=== PATIENT | male | born 1970 | race Hispanic/Latino ===

== ENCOUNTER 2017-08-07 12:51 | Observation (INO) | payer MEDICARE, OTHER ==
[2017-08-07] MEDS ORDERED: Iodixanol 320 MG/ML 100 ML BOTTLE IV ONE (13:27)
--- NOTE | 2017-08-07 13:37 | CT ---
PROCEDURE: CT HEAD WITHOUT CONTRAST. HISTORY: code stroke COMPARISON: None available. TECHNIQUE: Axial computed tomography images were obtained through the head/brain without intravenous contrast. Radiation dose: Total exam DLP = 846.1 mGy-cm. This CT exam was performed using one or more of the following dose reduction techniques: Automated exposure control, adjustment of the mA and/or kV according to patient size, and/or use of iterative reconstruction technique. FINDINGS: HEMORRHAGE: No intracranial hemorrhage. BRAIN: No mass effect or edema. No atrophy or chronic microvascular ischemic changes. VENTRICLES: Unremarkable. No hydrocephalus. CALVARIUM: Unremarkable. PARANASAL SINUSES: Left maxillary sinus and bilateral ethmoid air cell mucosal thickening. MASTOID AIR CELLS: Unremarkable as visualized. No inflammatory changes. OTHER FINDINGS: None. IMPRESSION: No acute intracranial pathology. Sinus disease as described above. Findings conveyed to Dr. Han by Dr. Mcgregor 1:35 pm on 08/07/2017.
[2017-08-07 13:38] LABS: INR 1.1 (0.9-1.2); PARTIAL THROMBOPLASTIN TIME 29.9 Seconds (25.6-37.1); PROTHROMBIN TIME 12.4 Seconds (9.8-13.1)
[2017-08-07 13:39] LABS: BASO % 0.7 % (0.0-2.0); EOS % 0.7 % (0.0-4.0); HEMOGLOBIN 15.9 g/dL (12.0-18.0); LYMPH # 1.9 K/uL (1.0-4.3); LYMPH % 45.9 % (20.0-40.0); MEAN CELL VOLUME 82.2 fl (80.0-94.0); MEAN CORPUSCULAR HEMOGLOBIN 27.8 pg (27.0-31.0); MEAN CORPUSCULAR HGB CONC 33.8 g/dL (33.0-37.0); MEAN PLATELET VOLUME 6.9 fl (7.2-11.7); MONO % 24.3 % (0.0-10.0); NEUT # 1.2 K/uL (1.8-7.0); NEUT % 28.4 % (50.0-75.0); NRBC % 0.1 % (0.0-0.0); PLATELET COUNT 166 K/uL (130-400); RBC 5.72 Mil/uL (4.40-5.90); WHITE BLOOD COUNT 4.1 K/uL (4.8-10.8)
[2017-08-07 13:39] LABS: CALCIUM 8.6 mg/dL (8.4-10.2); GFR AFRICAN-AMERICAN > 60; GFR NON-AFRICAN AMERICAN > 60; HDL CHOLESTEROL 37 MG/DL (30-70)
--- NOTE | 2017-08-07 13:42 | ED PDOC ---
HPI:STROKE - Historian Historian: Patient (this is a 47 yo [place] male with no past medical problem who presents to the ER because of left sided numbness that was noted about 2 hours prior to arrival. Patient has difficult finding the right Cam[place]onian word to describe his symptoms. His indicates that numbness is the closest term. Patient denies motor weakness, slurred speech, vision change, nausea or vomiting. Of note, he reports having had a high fever for the past 2-3 days that just resolved yesterday. He denies neck pain or headache.), Spouse - Chief Complaint Chief Complaint: Numbness - Onset Onset: Hours (2) - Timing Timing: Resolved NIHSS Stroke Scale - Date/Time Evaluation Performed When Was NIHSS Performed: Baseline - How Severe is the Stroke Level of Consciousness: 0=Alert LOC to Questions: 0=Both comments correct LOC to commands: 0=Obeys both correctly Best Gaze: 0=Normal Visual: 0=No visual loss Facial: 0=Normal Motor Arm - Left: 0=No drift Motor Arm - Right: 0=No drift Motor Leg - Left: 0=No drift Motor Leg - Right: 0=No drift Limb Ataxia: 0=Absent Sensory: 0=Normal Best Language: 0=No aphasia Dysarthia: 0=Normal articulation Extinction & Inattention (Neglect): 0=Normal, no object Score: 0 rTPA Inclusion/Exclusion - Refusal of Treatment Patient Refused Treatment: No - Inclusion Criteria for Altepase Patient is 18 years or Older: Yes The Clinical Diagnosis of Ischemic Stroke That is Causing a Potentially Disabling Neurological Deficit: No Time of Onset is Well Established to be Less Than 270 Minute Before Treatment Would Begin: Yes Risk/Benefit Discussed With Patient/Family Member Present: Yes Past Medical History Reviewed: Historical Data, Nursing Documentation, Vital Signs Vital Signs: Last Vital Signs Temp 98.2 F 08/07/17 12:59 Pulse 81 08/07/17 12:59 Resp 20 08/07/17 12:59 BP 154/92 H 08/07/17 12:59 Pulse Ox 99 08/07/17 12:59 - Medical History PMH: No Chronic Diseases - Surgical History Surgical History: No Surg Hx - Family History Family History: States: No Known Family Hx - Living Arrangements Living Arrangements: With Family - Social History Current smoker - smoking cessation education provided: No - Allergies Allergies/Adverse Reactions: Allergies Allergy/AdvReac Type Severity Reaction Status Date / Time No Known Allergies Allergy Verified 08/07/17 12:58 Review of Systems ROS Statement: Except As Marked, All Systems Reviewed And Found Negative Constitutional: Negative for: Fever, Chills Cardiovascular: Negative for: Chest Pain Respiratory: Negative for: Cough, Shortness of Breath Neurological: Negative for: Weakness Physical Exam - Reviewed Nursing Documentation Reviewed: Yes Vital Signs Reviewed: Yes - Physical Exam Appears: Positive for: Well, Non-toxic, No Acute Distress Head Exam: Positive for: ATRAUMATIC, NORMAL INSPECTION, NORMOCEPHALIC Skin: Positive for: Normal Color, Warm, DRY Eye Exam: Positive for: EOMI, Normal appearance, PERRL ENT: Positive for: Normal ENT Inspection Neck: Positive for: Normal, Painless ROM Cardiovascular/Chest: Positive for: Regular Rate, Rhythm Respiratory: Positive for: CNT, Normal Breath Sounds Gastrointestinal/Abdominal: Positive for: Normal Exam, Soft Back: Positive for: Normal Inspection Extremity: Positive for: Normal ROM Neurologic/Psych: Positive for: Alert, Oriented - Laboratory Results Result Diagrams: 08/07/17 13:30 08/07/17 13:20 - ECG O2 Sat by Pulse Oximetry: 99 - Radiology X-Ray: Read By Radiologist - Critical Care Total Time (In Min): 45 Medical Decision Making Medical Decision Making: Time: 1320 Plan: -- Type & Screen -- CTA Head/Neck Code Stroke (CT) -- Head w/o (Code Stroke) (CT) -- EKG -- CMP -- Hemoglobin A1C -- Lipid Panel -- Troponin -- Stroke Team consult -- CBC with differentials -- PTT -- Prothombin Time -- Chest Portable X-Ray -- Glucose, POC route -- Solar Panel Installer -- Call Stroke Team -- ED Obtain Labs -- Glucose, Blood, POC -- Nursing Swallow Screen -- Vital Signs Q15MIN Scribe Attestation: Documented by Izabella Lainez, acting as a scribe forDr. Renetta MD. Provider Scribe Attestation: All medical record entries made by the Scribe were at my direction and personally dictated by me. I have reviewed the chart and agree that the record accurately reflects my personal performance of the history, physical exam, medical decision making, and the department course for this patient. I have also personally directed, reviewed, and agree with the discharge instructions and disposition. case d/w Dr. Barnhart - admit to telemetry - case d/w Dr. Heller Disposition - Clinical Impression Clinical Impression: Left sided numbness - Patient ED Disposition Is Patient to be Admitted: Yes - Disposition Disposition: Transfer of Care Disposition Time: 14:00 Condition: GUARDED Forms: [facility] (Cam[place]onian) - Pt Status Changed To: Hospital Disposition Of: Observation
[2017-08-07 13:49] LABS: LDL CHOLESTEROL 43 mg/dL (0-129)
--- NOTE | 2017-08-07 13:52 | RAD ---
HISTORY: Code Stroke COMPARISON: No prior. FINDINGS: LUNGS: No active pulmonary disease. PLEURA: No significant pleural effusion identified, no pneumothorax apparent. CARDIOVASCULAR: Normal. OSSEOUS STRUCTURES: No significant abnormalities. VISUALIZED UPPER ABDOMEN: Normal. OTHER FINDINGS: None. IMPRESSION: No active disease.
[2017-08-07 13:56] LABS: ALB/GLOB RATIO 1.1 (1.0-2.1); ALBUMIN 4.4 g/dL (3.5-5.0); ALT/SGPT 33 U/L (21-72); AST/SGOT 43 U/L (17-59); BLOOD UREA NITROGEN 15 mg/dl (9-20)
[2017-08-07] MEDS: Sodium Chloride 0.9% 1,000 ML IV SCH (14:06)
[2017-08-07 14:36] LABS: ALB/GLOB RATIO 1.2 (1.0-2.1); ALT/SGPT 38 U/L (21-72); AST/SGOT 30 U/L (17-59); BLOOD UREA NITROGEN 15 mg/dl (9-20); CALCIUM 8.4 mg/dL (8.4-10.2); GFR AFRICAN-AMERICAN > 60; GFR NON-AFRICAN AMERICAN > 60
[2017-08-07 14:43] LABS: BLASTS 1 % (0-0); LYMPHOCYTE 22 % (20-50); METAMYELOCYTE 2 % (0-0); MONOCYTE 27 % (0-10); NEUTROPHIL 36 % (42-75); REACTIVE LYMPHOCYTES 12 % (0-0); TOTAL CELLS COUNTED 100
[2017-08-07 14:45] LABS: PLATELET ESTIMATE NORMAL (NORMAL)
--- NOTE | 2017-08-07 16:44 | CP.PCM.HP ---
History of Present Illness - History of Present Illness History of Present Illness: 47 yo male with no significant PMH aside from Glaucoma of the left eye brought in because of numbness of left side of the body lasting for about 5-10 seconds. Numbness described as tingling sensation associated with pressure like headache and prominence of the superficial vessels on the temporal areas. Denied motor weakness, visual changes or slurring of speech. Present on Admission - Present on Admission Any Indicators Present on Admission: No History of DVT/PE: No History of Uncontrolled Diabetes: No Urinary Catheter: No Decubitus Ulcer Present: No Review of Systems - Review of Systems All systems: reviewed and no additional remarkable complaints except (aside from those mentioned above, 12 point system review were negative by me) Past Patient History - Tetanus Immunizations Tetanus Immunization: Unknown - Past Social History Smoking Status: Never Smoked Chewing Tobacco Use: No Cigar Use: No Alcohol: None Drugs: Denies Home Situation {Lives}: With Family - HEENT Hx Glaucoma: Yes (lt eye) - PSYCHIATRIC Hx Substance Use: No - ANESTHESIA Hx Anesthesia: No Meds Allergies/Adverse Reactions: Allergies Allergy/AdvReac Type Severity Reaction Status Date / Time No Known Allergies Allergy Verified 08/07/17 12:58 Physical Exam - Constitutional Appears: No Acute Distress - Head Exam Head Exam: ATRAUMATIC - Eye Exam Eye Exam: absent: Scleral icterus - ENT Exam ENT Exam: Mucous Membranes Moist - Neck Exam Neck exam: Negative for: Meningismus - Respiratory Exam Respiratory Exam: absent: Rales, Rhonchi, Wheezes, Respiratory Distress - Cardiovascular Exam Cardiovascular Exam: REGULAR RHYTHM, +S1, +S2 - GI/Abdominal Exam GI & Abdominal Exam: Soft. absent: Tenderness - Rectal Exam Rectal Exam: Deferred - Extremities Exam Extremities exam: Negative for: calf tenderness, pedal edema - Back Exam Back exam: NORMAL INSPECTION - Neurological Exam Neurological exam: Alert, Oriented x3 - Psychiatric Exam Psychiatric exam: Normal Affect - Skin Skin Exam: Dry, Intact Results - Vital Signs Recent Vital Signs: Last Vital Signs Temp 98.2 F 08/07/17 12:59 Pulse 73 08/07/17 15:26 Resp 16 08/07/17 15:26 BP 135/90 08/07/17 15:26 Pulse Ox 99 08/07/17 14:20 - Labs Result Diagrams: 08/07/17 13:30 05/05/18 14:03 Labs: Laboratory Results - last 24 hr 08/07/17 08/07/17 08/07/17 13:06 13:20 13:20 WBC RBC Hgb Hct MCV MCH MCHC RDW Plt Count MPV Neut % (Auto) Lymph % (Auto) Angelina % (Auto) Eos % (Auto) Baso % (Auto) Neut # (Auto) Lymph # (Auto) Angelina # (Auto) Eos # (Auto) Baso # (Auto) Neutrophils % (Manual) Lymphocytes % (Manual) Reactive Lymphs % Monocytes % (Manual) Metamyelocytes % Blast Cells % Platelet Estimate RBC Morphology PT 12.4 INR 1.1 APTT 29.9 Sodium 138 Potassium 5.0 Chloride 97 L Carbon Dioxide 28 Anion Gap 18 BUN 15 Creatinine 0.8 Est GFR ( Amer) > 60 Est GFR (Non-Af Amer) > 60 POC Glucose (mg/dL) 121 H Random Glucose 107 Calcium 8.6 Total Bilirubin 1.1 AST 43 ALT 33 Alkaline Phosphatase 47 Troponin I < 0.0120 Total Protein 8.4 H Albumin 4.4 Globulin 4.0 H Albumin/Globulin Ratio 1.1 Triglycerides 120 Cholesterol 112 LDL Cholesterol Direct 43 HDL Cholesterol 37 Blood Type Antibody Screen BBK History Checked 08/07/17 08/07/17 08/07/17 13:20 13:30 13:48 WBC 4.1 L RBC 5.72 Hgb 15.9 Hct 47.0 MCV 82.2 MCH 27.8 MCHC 33.8 RDW 14.0 Plt Count 166 MPV 6.9 L Neut % (Auto) 28.4 L Lymph % (Auto) 45.9 H Angelina % (Auto) 24.3 H Eos % (Auto) 0.7 Baso % (Auto) 0.7 Neut # (Auto) 1.2 L Lymph # (Auto) 1.9 Angelina # (Auto) 1.0 H Eos # (Auto) 0.0 Baso # (Auto) 0.0 Neutrophils % (Manual) 36 L Lymphocytes % (Manual) 22 Reactive Lymphs % 12 H Monocytes % (Manual) 27 H Metamyelocytes % 2 H Blast Cells % 1 H Platelet Estimate Normal RBC Morphology PT INR APTT Sodium Potassium Chloride Carbon Dioxide Anion Gap BUN Creatinine Est GFR ( Amer) Est GFR (Non-Af Amer) POC Glucose (mg/dL) Random Glucose Calcium Total Bilirubin AST ALT Alkaline Phosphatase Troponin I Total Protein Albumin Globulin Albumin/Globulin Ratio Triglycerides Cholesterol LDL Cholesterol Direct HDL Cholesterol Blood Type Cancelled AB POSITIVE Antibody Screen Cancelled Negative BBK History Checked Cancelled No verified bt 08/07/17 14:03 WBC RBC Hgb Hct MCV MCH MCHC RDW Plt Count MPV Neut % (Auto) Lymph % (Auto) Angelina % (Auto) Eos % (Auto) Baso % (Auto) Neut # (Auto) Lymph # (Auto) Angelina # (Auto) Eos # (Auto) Baso # (Auto) Neutrophils % (Manual) Lymphocytes % (Manual) Reactive Lymphs % Monocytes % (Manual) Metamyelocytes % Blast Cells % Platelet Estimate RBC Morphology PT INR APTT Sodium 137 Potassium 3.8 Chloride 96 L Carbon Dioxide 28 Anion Gap 17 BUN 15 Creatinine 0.8 Est GFR ( Amer) > 60 Est GFR (Non-Af Amer) > 60 POC Glucose (mg/dL) Random Glucose 113 H Calcium 8.4 Total Bilirubin 0.5 AST 30 ALT 38 Alkaline Phosphatase 52 Troponin I Total Protein 7.4 Albumin 4.0 Globulin 3.4 Albumin/Globulin Ratio 1.2 Triglycerides Cholesterol LDL Cholesterol Direct HDL Cholesterol Blood Type Antibody Screen BBK History Checked Assessment & Plan - Assessment and Plan (Free Text) Assessment: 47 yo male with no significant PMH aside from Glaucoma of the left eye brought in because of numbness of left side of the body lasting for about 5-10 seconds. Numbness described as tingling sensation associated with pressure like headache and prominence of the superficial vessels on the temporal areas. Denied motor weakness, visual changes or slurring of speech. 1. Paresthesia of left side CT scan of head: no abnormality place on observation neuro consult with Dr Mandujano (ER called) ASA 81mg PO daily
--- NOTE | 2017-08-07 17:42 | CT ---
PROCEDURE: CT Angiography of the neck and brain dated 08/07/2017 HISTORY: Left-sided numbness. COMPARISON: Comparison made with CT scan brain 08/07/2017 TECHNIQUE: Contiguous helical/transaxial images of the neck were obtained from the level of the skull-base to the superior mediastinum in the arteriographic phase of enhancement. Coronal and sagittal reformats or also generated. IV contrast dose: 99 cc Visipaque 320 Radiation Dose - DLP: 636.63 mGy-cm This CT exam was performed using one or more of the following dose reduction techniques: Automated exposure control, adjustment of the mA and/or kV according to patient size, and/or use of iterative reconstruction technique. . FINDINGS: The visualized aortic arch widely patent with no significant atherosclerotic disease. Of the origins of the great vessels are also widely patent. The right brachiocephalic and left common carotid artery arise from a common trunk. The right and left common carotid arteries, carotid bifurcations and internal carotid arteries, including the petrous, cavernous and supraclinoid segments are widely patent. No significant atherosclerotic disease. No evidence of significant stenosis nor dissection. The vertebral arteries are patent throughout left-sided which is slightly larger in caliber/more dominant than the right side. . Basilar artery is patent. There is a origin of the right posterior cerebral artery. The visualized major branches of the [place] are also unremarkable without occlusion or significant stenosis. The distal of branches of the anterior middle and posterior cerebral artery is relatively symmetric. No evidence of large aneurysm nor vascular malformation. Note made of multiple of bilateral cervical lymph nodes within the jugulodigastric, submandibular -the submental and posterior cervical spaces bilaterally none of which appear pathologically enlarged. The largest right-sided jugulodigastric lymph node measures approximately 11.7 mm and the largest left-sided jugulodigastric lymph node measures approximately 12.4 mm. Lung apices clear. Mild multilevel degenerative spondylosis of the cervical spine most notably affecting the C5-C6 and to a lesser degree C6-C7 levels. IMPRESSION: Unremarkable CTA of the neck and brain. No evidence of occlusion, significant stenosis nor dissection. No evidence of large cerebral aneurysm nor vascular malformation.
--- NOTE | 2017-08-07 17:42 | CARD ---
APPROVED REPORT EKG Measurement Heart [id number] [id number] <Conclusion> Normal sinus rhythm Left axis deviation Abnormal ECG
--- NOTE | 2017-08-07 18:29 | CP.PCM.CON ---
History of Present Illness - History of Present Illness History of Present Illness: 47 yo male who has pmh of glaucoma of left eye, presented to [facility] with numbness of left side of the body lasting for about 5-10 seconds. noNumbness described as tingling sensation associated with pressure like headache and prominence of the superficial vessels on the temporal areas. Denied motor weakness, visual changes or slurring of speech. No headache, no facial asymmetry. PMH/PSH: left eye glaucoma FH/SH: drinks only occasionally. [employer] of [employer] in [facility]. no tobacco All: nkda. on exam: Normal neurological examination. No sensory loss. Past Patient History - Tetanus Immunizations Tetanus Immunization: Unknown - Past Social History Smoking Status: Never Smoked Chewing Tobacco Use: No Cigar Use: No Alcohol: None Drugs: Denies Home Situation {Lives}: With Family - HEENT Hx Glaucoma: Yes (lt eye) - PSYCHIATRIC Hx Substance Use: No - ANESTHESIA Hx Anesthesia: No Meds Allergies/Adverse Reactions: Allergies Allergy/AdvReac Type Severity Reaction Status Date / Time No Known Allergies Allergy Verified 08/07/17 12:58 - Medications Medications: Current Medications Sodium Chloride (Sodium Chloride 0.9%) 1,000 mls @ 100 mls/hr IV .Q10H JUSTIN Last Admin: 08/07/17 14:06 Dose: 100 mls/hr Results - Vital Signs Recent Vital Signs: Last Vital Signs Temp 98.2 F 08/07/17 12:59 Pulse 91 H 08/07/17 17:29 Resp 16 08/07/17 17:29 BP 134/87 08/07/17 17:29 Pulse Ox 96 08/07/17 17:29 - Labs Result Diagrams: 08/07/17 13:30 08/07/17 14:03 Labs: Laboratory Results - last 24 hr 08/07/17 08/07/17 08/07/17 13:06 13:20 13:20 WBC RBC Hgb Hct MCV MCH MCHC RDW Plt Count MPV Neut % (Auto) Lymph % (Auto) [place] % (Auto) Eos % (Auto) Baso % (Auto) Neut # (Auto) Lymph # (Auto) [place] # (Auto) Eos # (Auto) Baso # (Auto) Neutrophils % (Manual) Lymphocytes % (Manual) Reactive Lymphs % Monocytes % (Manual) Metamyelocytes % Blast Cells % Platelet Estimate RBC Morphology PT 12.4 INR 1.1 APTT 29.9 Sodium 138 Potassium 5.0 Chloride 97 L Carbon Dioxide 28 Anion Gap 18 BUN 15 Creatinine 0.8 Est GFR ( Amer) > 60 Est GFR (Non-Af Amer) > 60 POC Glucose (mg/dL) 121 H Random Glucose 107 Calcium 8.6 Total Bilirubin 1.1 AST 43 ALT 33 Alkaline Phosphatase 47 Troponin I < 0.0120 Total Protein 8.4 H Albumin 4.4 Globulin 4.0 H Albumin/Globulin Ratio 1.1 Triglycerides 120 Cholesterol 112 LDL Cholesterol Direct 43 HDL Cholesterol 37 Blood Type Antibody Screen BBK History Checked 08/07/17 08/07/17 08/07/17 13:20 13:30 13:48 WBC 4.1 L RBC 5.72 Hgb 15.9 Hct 47.0 MCV 82.2 MCH 27.8 MCHC 33.8 RDW 14.0 Plt Count 166 MPV 6.9 L Neut % (Auto) 28.4 L Lymph % (Auto) 45.9 H [place] % (Auto) 24.3 H Eos % (Auto) 0.7 Baso % (Auto) 0.7 Neut # (Auto) 1.2 L Lymph # (Auto) 1.9 [place] # (Auto) 1.0 H Eos # (Auto) 0.0 Baso # (Auto) 0.0 Neutrophils % (Manual) 36 L Lymphocytes % (Manual) 22 Reactive Lymphs % 12 H Monocytes % (Manual) 27 H Metamyelocytes % 2 H Blast Cells % 1 H Platelet Estimate Normal RBC Morphology PT INR APTT Sodium Potassium Chloride Carbon Dioxide Anion Gap BUN Creatinine Est GFR ( Amer) Est GFR (Non-Af Amer) POC Glucose (mg/dL) Random Glucose Calcium Total Bilirubin AST ALT Alkaline Phosphatase Troponin I Total Protein Albumin Globulin Albumin/Globulin Ratio Triglycerides Cholesterol LDL Cholesterol Direct HDL Cholesterol Blood Type Cancelled AB POSITIVE Antibody Screen Cancelled Negative BBK History Checked Cancelled No verified bt 08/07/17 14:03 WBC RBC Hgb Hct MCV MCH MCHC RDW Plt Count MPV Neut % (Auto) Lymph % (Auto) [place] % (Auto) Eos % (Auto) Baso % (Auto) Neut # (Auto) Lymph # (Auto) [place] # (Auto) Eos # (Auto) Baso # (Auto) Neutrophils % (Manual) Lymphocytes % (Manual) Reactive Lymphs % Monocytes % (Manual) Metamyelocytes % Blast Cells % Platelet Estimate RBC Morphology PT INR APTT Sodium 137 Potassium 3.8 Chloride 96 L Carbon Dioxide 28 Anion Gap 17 BUN 15 Creatinine 0.8 Est GFR ( Amer) > 60 Est GFR (Non-Af Amer) > 60 POC Glucose (mg/dL) Random Glucose 113 H Calcium 8.4 Total Bilirubin 0.5 AST 30 ALT 38 Alkaline Phosphatase 52 Troponin I Total Protein 7.4 Albumin 4.0 Globulin 3.4 Albumin/Globulin Ratio 1.2 Triglycerides Cholesterol LDL Cholesterol Direct HDL Cholesterol Blood Type Antibody Screen BBK History Checked - Imaging and Cardiology CT scan - head Status: Image reviewed by me, Report reviewed by me (cta: shows bilateral enlarged lymph nodes. ) Assessment & Plan - Assessment and Plan (Free Text) Assessment: 47 yr old male who may have had lacunar stroke, but also has some unusual lymphadenopathy, and will need MRI Brain with yashira. PLan; 1. MRI BRain with yashira 2. echo 3. aspirin 325 mg po daily thank you DR. Barnhart
--- NOTE | 2017-08-07 20:46 | US ---
EXAM: US Duplex Left Lower Extremity Veins CLINICAL HISTORY: 47 years old, male; Pain; Leg, lower; Left; Additional info: R/O dvt TECHNIQUE: Real-time duplex ultrasound scan of the left lower extremity veins integrating B-mode two-dimensional vascular structure, Doppler spectral analysis, color flow Doppler imaging and compression. COMPARISON: No relevant prior studies available. FINDINGS: Deep veins: No DVT in the visualized common femoral, femoral, proximal deep femoral, popliteal or posterior tibial veins. The veins demonstrate normal color flow, are normally compressible, with normal phasic flow and/or augmentation response. IMPRESSION: No evidence of deep venous thrombosis in the visualized veins of the left lower extremity.
[2017-08-08 00:06] VITALS: RESP 18
[2017-08-08] MEDS: Sodium Chloride 0.9% 1,000 ML IV SCH (01:43)
[2017-08-08 06:34] LABS: BASO % 0.3 % (0.0-2.0); EOS % 0.6 % (0.0-4.0); HEMOGLOBIN 14.1 g/dL (12.0-18.0); LYMPH # 1.5 K/uL (1.0-4.3); LYMPH % 43.1 % (20.0-40.0); MEAN CELL VOLUME 81.9 fl (80.0-94.0); MEAN CORPUSCULAR HGB CONC 34.2 g/dL (33.0-37.0); MEAN PLATELET VOLUME 6.6 fl (7.2-11.7); MONO # 0.5 K/uL (0.0-0.8); MONO % 13.7 % (0.0-10.0); NEUT # 1.5 K/uL (1.8-7.0); NEUT % 42.3 % (50.0-75.0); NRBC % 0.2 % (0.0-0.0); RBC 5.02 Mil/uL (4.40-5.90); RED CELL DISTRIBUTION WIDTH 13.8 % (11.5-14.5); WHITE BLOOD COUNT 3.5 K/uL (4.8-10.8)
[2017-08-08 06:44] LABS: BLOOD UREA NITROGEN 13 mg/dl (9-20); GFR AFRICAN-AMERICAN > 60; GFR NON-AFRICAN AMERICAN > 60
[2017-08-08 08:03] VITALS: BP 112/73; PULSE 64; TEMP 97.8; O2SAT 98
--- NOTE | 2017-08-08 09:37 | CP.PCM.DIS ---
Provider - Provider Date of Admission: 08/07/17 14:31 Attending physician: Ang Heller MD Primary care physician: Poppy Menendez Consults: Neuro consult Time Spent in preparation of Discharge (in minutes): 10 Hospital Course - Lab Results Lab Results: Most Recent Lab Values WBC 3.5 K/uL (4.8-10.8) L 08/08/17 05:00 RBC 5.02 Mil/uL (4.40-5.90) 08/08/17 05:00 Hgb 14.1 g/dL (12.0-18.0) 08/08/17 05:00 Hct 41.1 % (35.0-51.0) 08/08/17 05:00 MCV 81.9 fl (80.0-94.0) 08/08/17 05:00 MCH 28.0 pg (27.0-31.0) 08/08/17 05:00 MCHC 34.2 g/dL (33.0-37.0) 08/08/17 05:00 RDW 13.8 % (11.5-14.5) 08/08/17 05:00 Plt Count 147 K/uL (130-400) 08/08/17 05:00 MPV 6.6 fl (7.2-11.7) L 08/08/17 05:00 Neut % (Auto) 42.3 % (50.0-75.0) L 08/08/17 05:00 Lymph % (Auto) 43.1 % (20.0-40.0) H 08/08/17 05:00 Cross % (Auto) 13.7 % (0.0-10.0) H 08/08/17 05:00 Eos % (Auto) 0.6 % (0.0-4.0) 08/08/17 05:00 Baso % (Auto) 0.3 % (0.0-2.0) 08/08/17 05:00 Neut # (Auto) 1.5 K/uL (1.8-7.0) L 08/08/17 05:00 Lymph # (Auto) 1.5 K/uL (1.0-4.3) 08/08/17 05:00 Cross # (Auto) 0.5 K/uL (0.0-0.8) 08/08/17 05:00 Eos # (Auto) 0.0 K/uL (0.0-0.7) 08/08/17 05:00 Baso # (Auto) 0.0 K/uL (0.0-0.2) 08/08/17 05:00 Neutrophils % (Manual) 36 % (42-75) L 08/07/17 13:30 Lymphocytes % (Manual) 22 % (20-50) 08/07/17 13:30 Reactive Lymphs % 12 % (0-0) H 08/07/17 13:30 Monocytes % (Manual) 27 % (0-10) H 08/07/17 13:30 Metamyelocytes % 2 % (0-0) H 08/07/17 13:30 Blast Cells % 1 % (0-0) H 08/07/17 13:30 Platelet Estimate Normal (NORMAL) 08/07/17 13:30 RBC Morphology (NORMAL) 08/07/17 13:30 PT 12.4 Seconds (9.8-13.1) 08/07/17 13:20 INR 1.1 (0.9-1.2) 08/07/17 13:20 APTT 29.9 Seconds (25.6-37.1) 08/07/17 13:20 Sodium 141 mmol/l (132-148) 08/08/17 05:00 Potassium 4.5 MMOL/L (3.6-5.0) 08/08/17 05:00 Chloride 103 mmol/L (98-107) 08/08/17 05:00 Carbon Dioxide 29 mmol/L (22-30) 08/08/17 05:00 Anion Gap 14 (10-20) 08/08/17 05:00 BUN 13 mg/dl (9-20) 08/08/17 05:00 Creatinine 0.7 mg/dl (0.8-1.5) L 08/08/17 05:00 Est GFR ( Amer) > 60 08/08/17 05:00 Est GFR (Non-Af Amer) > 60 08/08/17 05:00 POC Glucose (mg/dL) 121 mg/dL (65-110) H 08/07/17 13:06 Random Glucose 88 mg/dL (75-110) 08/08/17 05:00 Calcium 8.0 mg/dL (8.4-10.2) L 08/08/17 05:00 Total Bilirubin 0.5 mg/dl (0.2-1.3) 08/07/17 14:03 AST 30 U/L (17-59) 08/07/17 14:03 ALT 38 U/L (21-72) 08/07/17 14:03 Alkaline Phosphatase 52 U/L (38-126) 08/07/17 14:03 Troponin I < 0.0120 ng/mL (0.00-0.120) 08/07/17 13:20 Total Protein 7.4 G/DL (6.3-8.2) 08/07/17 14:03 Albumin 4.0 g/dL (3.5-5.0) 08/07/17 14:03 Globulin 3.4 gm/dL (2.2-3.9) 08/07/17 14:03 Albumin/Globulin Ratio 1.2 (1.0-2.1) 08/07/17 14:03 Triglycerides 120 mg/DL (0-149) 08/07/17 13:20 Cholesterol 112 mg/dL (0-199) 08/07/17 13:20 LDL Cholesterol Direct 43 mg/dL (0-129) 08/07/17 13:20 HDL Cholesterol 37 MG/DL (30-70) 08/07/17 13:20 Blood Type AB POSITIVE 08/07/17 13:48 Antibody Screen Negative 08/07/17 13:48 BBK History Checked No verified bt 08/07/17 13:48 - Hospital Course Hospital Course: 47 yo male with PMH of glaucoma of left eye, presented to [facility] with tingling of left side of the body lasting for about 5-10 seconds. Tingling sensation associated with pressure like headache and prominence of the superficial vessels on the temporal areas. Denied motor weakness, visual changes or slurring of speech. No headache, no facial asymmetry. As per patient he has not been feeling well for the last few days with fever for 3 days max 43 celcius , with nasal congestion , minimal productive cough with yellow secretions, generalized weakness ,decreased PO intake. Ct head showed no acute pathology, right maxillary sinus and bilateral ethmoidal sinus wall thickening Blood work up showed predominant lymphocytes and monocytes Afebrile CXR showed no acute pathology He states that has been having this tingling sensation on and off for the past 2 years, both upper and lower extremity He was placed under observation in telemetry, started on ASa, neuro checks , neurology consulted and ordered CTA head and neck and MRI brain Physical exam significant for palpable , not tender soft mobile LN right and left submandibular area CTA head and neck showed no acute pathology :multiple of bilateral cervical lymph nodes within the jugulodigastric, submandibular -the submental and posterior cervical spaces bilaterally none of which appear pathologically enlarged. The largest right-sided jugulodigastric lymph node measures approximately 11.7 mm and the largest left-sided jugulodigastric lymph node measures approximately 12.4 mm. Lung apices clear. Mild multilevel degenerative spondylosis of the cervical spine most notably affecting the C5-C6 and to a lesser degree C6-C7 levels. Overnight he remained stable with no neuro deficits , no weakness or sensory deficits.Complains of some pressure sensation to left side of head , minimal productive cough Based on all the new information and imaging most likely diagnosis is 1. Peripheral radiculopathy ( spondylosis C5-C6 c6-c7) 2.Suspected Acute Viral Rhinosinusitis superimposed by bacterial infection ( sent infectious mononucleosis) 3.Acute RhinoSinusitis 3.CVA ruled out Recommendations: Will discharge patient home . Will start Augmentin 875 mg po BID for 10 days for acute Rhinosinuvitis Continue ASA 81 mg po daily MRI with gadalinium to be performed as outpatient . Follow up with neurologist Return to hospital if left side tingling or weakness worsen or notices any other changes Discharge Exam - Head Exam Head Exam: ATRAUMATIC, NORMAL INSPECTION, NORMOCEPHALIC - Eye Exam Eye Exam: EOMI, Normal appearance, PERRL Pupil Exam: NORMAL ACCOMODATION - ENT Exam ENT Exam: Mucous Membranes Moist, Normal Exam - Neck Exam Neck exam: Full Rom, Lymphadenopathy (submandibular bilateral ), Normal Inspection - Respiratory Exam Respiratory Exam: Clear to PA & Lateral, NORMAL BREATHING PATTERN. absent: Rales, Rhonchi, Wheezes - Cardiovascular Exam Cardiovascular Exam: REGULAR RHYTHM, RRR, +S1, +S2. absent: JVD - GI/Abdominal Exam GI & Abdominal Exam: Normal Bowel Sounds, Soft. absent: Distended, Guarding, Rebound, Tenderness - Rectal Exam Rectal Exam: Deferred - Extremities Exam Extremities exam: normal capillary refill, normal inspection, pedal pulses present - Back Exam Back exam: NORMAL INSPECTION - Neurological Exam Neurological exam: Alert, CN II-XII Intact, Oriented x3, Reflexes Normal - Psychiatric Exam Psychiatric exam: Normal Affect, Normal Mood - Skin Skin Exam: Dry, Intact, Warm Discharge Plan - Discharge Medications Prescriptions: Amoxicillin/Clavulanate [Augmentin 875 MG-125 MG] 1 tab PO BID #20 tab Aspirin [Aspirin Chewable] 81 mg PO DAILY #30 chew - Follow Up Plan Condition: STABLE Disposition: HOME/ ROUTINE Patient education suggested?: Yes Instructions: Paresthesias (DC), Radiculopathy, Sinusitis, Adult (DC) Referrals: Hermelinda Barnhart MD [Medical Doctor] -
--- NOTE | 2017-08-08 09:58 | CP.PCM.PN ---
Subjective - Date & Time of Evaluation Date of Evaluation: 08/08/17 Time of Evaluation: 09:56 - Subjective Subjective: Mr. Cynthia Vora was seen and examined at the bedside. He is alert, oriented in all spheres. He is complaining of feeling dull occipital headache, described as a congested headache. He has episode of non-productive cough. He denies any blurred vision, diplopia, lightheadedness, nausea, or vomiting. He is able to follow simple commands with no weakness noted. There was no untoward events overnight. Objective - Vital Signs/Intake and Output Vital Signs (last 24 hours): Temp Pulse Resp BP Pulse Ox 97.8 F 64 18 112/73 98 08/08/17 08:02 08/08/17 08:02 08/08/17 08:02 08/08/17 08:02 08/08/17 08:02 - Medications Medications: Current Medications Sodium Chloride (Sodium Chloride 0.9%) 1,000 mls @ 100 mls/hr IV .Q10H JUSTIN Last Admin: 08/08/17 01:43 Dose: 100 mls/hr - Labs Labs: 08/08/17 05:00 08/08/17 05:00 PT 12.4 Seconds (9.8-13.1) 08/07/17 13:20 INR 1.1 (0.9-1.2) 08/07/17 13:20 APTT 29.9 Seconds (25.6-37.1) 08/07/17 13:20 - Constitutional Appears: No Acute Distress - Head Exam Head Exam: NORMAL INSPECTION - Neurological Exam Neurological Exam: Alert, CN II-XII Intact, Oriented x3 Neuro motor strength exam: Left Upper Extremity: 5, Right Upper Extremity: 5, Left Lower Extremity: 5, Right Lower Extremity: 5 Additional comments: Alert, oriented x3, follows commands. Sensation is intact. Assessment and Plan - Assessment and Plan (Free Text) Assessment: Lacunar Stroke Case discussed with Dr. webber, continue all current medical, physical, occupational, and speech therapies. Pending MRI of the brain and echocardiogram.
== END 2017-08-08 12:06 | disposition home or self-care (01) ==
LOC: H.ER 12:51 → H.ERHOLD 14:31 → H.TEL 17:11
DX: M47.22 Other spondylosis with radiculopathy, cervical region (principal); J01.90 Acute sinusitis, unspecified; H40.9 Unspecified glaucoma
CPT/HCPCS: 36415; 70450; 70496; 70498; 71045; 80048; 80053; 80061; 82948; 83036; 84443; 84484; 85025; 85610; 85730; 86308; 86850; 86900; 87070; 87430; 93005; 93971; 99283; G0378; J7040; Q9967

== ENCOUNTER 2017-11-01 17:33 | Emergency (ER) | payer OTHER ==
--- NOTE | 2017-11-01 18:09 | ED PDOC ---
HPI:STROKE - Time Time: 18:07 - Historian Historian: Patient - Notes: Notes:: Pt reports L sided numbness/weakness X 2 months, intermittent. Was admitted to [facility] 2 months ago, CT head negative, was discharged. Followed-up with PMD and Neurologist who ordered EMG but pt could not tolerate study. Also c/o L sided chest pain and intermittent SOB. Pt takes 81 mg ASA daily. Against Medical Advice - AMA Patient Left Against Medical Advice: The patient declines admission to the hospital and wishes to leave the Emergency Department. This action is against my medical advice. This decision was made with informed refusal. The patient was told that admission to the hospital is necessary. Explanation of the reasons why were discussed. The risks of leaving were explained to the patient and include, but are not limited to, worsening of known or currently unknown conditions, permanent disability and from undiagnosed or untreated conditions. The patient has the capacity to make this informed decision and understands my explanation of the current medical problem and risks of leaving. The patient voluntarily accepts these risks and signed an AMA form documenting our conversation. The patient was given the opportunity to ask questions and reconsider. The patient was encouraged to return to the Emergency Department at any time for further care. NIHSS Stroke Scale - Date/Time Evaluation Performed Date Performed: 11/01/17 When Was NIHSS Performed: Baseline - How Severe is the Stroke Level of Consciousness: 0=Alert LOC to Questions: 0=Both comments correct LOC to commands: 0=Obeys both correctly Best Gaze: 0=Normal Visual: 0=No visual loss Facial: 0=Normal Motor Arm - Left: 0=No drift Motor Arm - Right: 0=No drift Motor Leg - Left: 0=No drift Motor Leg - Right: 0=No drift Limb Ataxia: 0=Absent Sensory: 0=Normal Best Language: 0=No aphasia Dysarthia: 0=Normal articulation Extinction & Inattention (Neglect): 0=Normal, no object Score: 0 rTPA Inclusion/Exclusion - Refusal of Treatment Patient Refused Treatment: No - Inclusion Criteria for Altepase Patient is 18 years or Older: Yes The Clinical Diagnosis of Ischemic Stroke That is Causing a Potentially Disabling Neurological Deficit: No Time of Onset is Well Established to be Less Than 270 Minute Before Treatment Would Begin: No Risk/Benefit Discussed With Patient/Family Member Present: No - Exclusion Criteria for Altepase Uncontrolled Hypertension at Time of Treatment (Systolic BP above 185 or Diastolic BP above 110 mmHg): No Active Internal Bleeding: No Known Bleeding Diathesis Including but Not Limited to: Platelets Below 100,000/ mm,PTT Above 40 sec After Heparin Use, Current Use of Oral Anitcoagulant With INR Greater Than 1.7 or PT Greater Than 15 secs: No Evidence of an Intracranial Hemorrhage: No Evidence of Major Acute Infarct With Signs Greater Than 1/3 MCA Territory: No Suspicion of Subarachnoid Hemorrhage on Pretreatment Evaluation Even if CT Head Negative For Hemorrhage: No Past Medical History Reviewed: Nursing Documentation, Vital Signs Vital Signs: Last Vital Signs Temp 97.8 F 11/01/17 17:43 Pulse 81 11/01/17 17:43 Resp 18 11/01/17 17:43 BP 136/90 11/01/17 17:43 Pulse Ox 136 H 11/01/17 17:43 - Medical History PMH: No Chronic Diseases Denies: Chronic Kidney Disease Other PMH: Glaucoma - Family History Family History: States: Unknown Family Hx - Living Arrangements Living Arrangements: With Family - Social History Current smoker - smoking cessation education provided: No Alcohol: None Drugs: Denies - Home Medications Home Medications: Ambulatory Orders Medication Instructions Recorded Bimatoprost [Lumigan] 1 drop BOTHEYES DAILY 08/07/17 Mv-Min/Vit C/Glut/Lysine/Hc124 1 each PO DAILY 08/07/17 [Airborne Tablet Chewable] Amoxicillin/Clavulanate [Augmentin 1 tab PO BID #20 tab 08/08/17 875 MG-125 MG] Aspirin [Aspirin Chewable] 81 mg PO DAILY #30 chew 08/08/17 - Allergies Allergies/Adverse Reactions: Allergies Allergy/AdvReac Type Severity Reaction Status Date / Time No Known Allergies Allergy Verified 08/07/17 12:58 Review of Systems Constitutional: Negative for: Fever, Chills Eyes: Negative for: Vision Change Cardiovascular: Positive for: Chest Pain. Negative for: Palpitations Respiratory: Positive for: Shortness of Breath. Negative for: Cough Gastrointestinal: Negative for: Nausea, Vomiting, Abdominal Pain, Diarrhea Genitourinary Male: Negative for: Dysuria, Hematuria Skin: Negative for: Rash, Lesions Neurological: Positive for: Weakness, Numbness. Negative for: Incoordination, Change in Speech, Confusion, Seizures, Altered Mental Status, Headache, Dizziness Physical Exam - Reviewed Nursing Documentation Reviewed: Yes Vital Signs Reviewed: Yes - Physical Exam Appears: Positive for: Well, No Acute Distress Head Exam: Positive for: ATRAUMATIC, NORMAL INSPECTION Skin: Positive for: Normal Color, Warm, Dry Eye Exam: Positive for: Normal appearance, EOMI, PERRL Cardiovascular/Chest: Positive for: Regular Rate, Rhythm Respiratory: Positive for: Normal Breath Sounds. Negative for: Rales, Rhonchi, Wheezing Gastrointestinal/Abdominal: Positive for: Normal Exam, Bowel Sounds, Soft Extremity: Positive for: Normal ROM Neurologic/Psych: Positive for: Alert, binder operator II-XII, Oriented. Negative for: Motor/Sensory Deficits, Aphasia, Facial Droop - Laboratory Results Result Diagrams: 11/01/17 18:10 11/01/17 17:10 - ECG O2 Sat by Pulse Oximetry: 136 Medical Decision Making Medical Decision Makin yo male with L sided numbness/weakness and chest pain. - labs - EKG - CXR - CT head Accession No. : [id number] Patient Name / ID : CARA MANCILLA / [id number] Exam Date : 11/01/2017 18:14:20 ( Approved ) Study Comment : Sex / Age : M / 47Y Creator : bekah greenberg Dictator : Vaughn Farris MD Adjunct Instructor Chemistry : Stencil Machine Operator : Vaughn Farris MD Approver2 : Report Date : 11/01/2017 18:27:49 My Comment : Date of service: 11/01/2017 HISTORY: Code Stroke COMPARISON: 08/07/2017. FINDINGS: LUNGS: No active pulmonary disease. PLEURA: No significant pleural effusion identified, no pneumothorax apparent. CARDIOVASCULAR: No radiographic findings to suggest acute or significant cardiovascular disease. OSSEOUS STRUCTURES: No significant abnormalities. VISUALIZED UPPER ABDOMEN: Normal. OTHER FINDINGS: None. IMPRESSION: No active disease. No significant interval change compared to the prior examination(s). Accession No. : [id number] Patient Name / ID : CARA MANCILLA / [id number] Exam Date : 11/01/2017 19:09:36 ( Approved ) Study Comment : Sex / Age : M / 47Y Creator : Merry Felton MD Dictator : Merry Felton MD Adjunct Instructor Chemistry : Stencil Machine Operator : Merry Felton MD Approver2 : Report Date : 11/02/2017 10:06:54 My Comment : Date of service: 11/01/2017 PROCEDURE: CT HEAD WITHOUT CONTRAST. HISTORY: L sided numbness/weakness X 2 months COMPARISON: None available. TECHNIQUE: Axial computed tomography images were obtained through the head/brain without intravenous contrast. Radiation dose: Total exam DLP = 780.69 mGy-cm. This CT exam was performed using one or more of the following dose reduction techniques: Automated exposure control, adjustment of the mA and/or kV according to patient size, and/or use of iterative reconstruction technique. FINDINGS: HEMORRHAGE: No intracranial hemorrhage. BRAIN: Avila-white matter differentiation is preserved. There is no mass, mass effect or abnormal extra-axial fluid collection. There is no territorial infarction. The midline sagittal structures are normal. VENTRICLES: The ventricles are normal in size, shape and configuration. CALVARIUM: There is no calvarial fracture or extracranial soft tissue swelling. PARANASAL SINUSES: Predominantly clear. MASTOID AIR CELLS: Predominantly clear. OTHER FINDINGS: None. IMPRESSION: No acute intracranial abnormality. If there is a persistent focal neurologic deficit and an ongoing clinical concern for acute infarction, an MRI of the brain without intravenous contrast would be a more sensitive modality for evaluation of hyperacute/acute ischemic infarction. . Disposition - Clinical Impression Clinical Impression: Chest pain, Left sided numbness - Patient ED Disposition Is Patient to be Admitted: No - Disposition Disposition: Against Medical Advice Disposition Time: 20:17 Condition: UNKNOWN Forms: [place] (Qatari) ROBERTO Risk Score for UA/NSTEMI - ROBERTO Risk Score Age > 64: NO 3 or more CAD Risk Factors: NO Known CAD (Stenosis greater than 50%): NO Aspirin use in past 7 days: YES Severe Angina: NO EKG ST changes greater than 0.5mm: NO Positive Cardiac Marker: NO ROBERTO Score: 1 % risk at 14 days of: all cause mortality, new or recurrent DE, or severe recurrent ischemia requiring urgen revascularization: 5%
[2017-11-01] MEDS ORDERED: Sodium Chloride 0.9% 1,000 ML IV SCH (18:15)
[2017-11-01 18:21] LABS: BASO % 0.7 % (0.0-2.0); EOS % 0.6 % (0.0-4.0); HEMOGLOBIN 15.3 g/dL (12.0-18.0); LYMPH # 2.1 K/uL (1.0-4.3); LYMPH % 29.9 % (20.0-40.0); MEAN CELL VOLUME 83.3 fl (80.0-94.0); MEAN CORPUSCULAR HEMOGLOBIN 28.1 pg (27.0-31.0); MEAN CORPUSCULAR HGB CONC 33.7 g/dL (33.0-37.0); MEAN PLATELET VOLUME 6.2 fl (7.2-11.7); MONO # 0.4 K/uL (0.0-0.8); MONO % 5.6 % (0.0-10.0); NEUT # 4.5 K/uL (1.8-7.0); NEUT % 63.2 % (50.0-75.0); NRBC % 0.1 % (0.0-0.0); RBC 5.45 Mil/uL (4.40-5.90); RED CELL DISTRIBUTION WIDTH 14.3 % (11.5-14.5); WHITE BLOOD COUNT 7.1 K/uL (4.8-10.8)
[2017-11-01 18:37] LABS: ALB/GLOB RATIO 1.4 (1.0-2.1); ALBUMIN 4.5 g/dL (3.5-5.0); ALT/SGPT 39 U/L (21-72); AST/SGOT 28 U/L (17-59); BLOOD UREA NITROGEN 11 mg/dl (9-20); CALCIUM 9.3 mg/dL (8.4-10.2); GFR AFRICAN-AMERICAN > 60; GFR NON-AFRICAN AMERICAN > 60; HDL CHOLESTEROL 66 MG/DL (30-70)
[2017-11-01 18:48] LABS: LDL CHOLESTEROL 67 mg/dL (0-129)
--- NOTE | 2017-11-01 18:49 | RAD ---
Date of service: 11/01/2017 HISTORY: Code Stroke COMPARISON: 08/07/2017. FINDINGS: LUNGS: No active pulmonary disease. PLEURA: No significant pleural effusion identified, no pneumothorax apparent. CARDIOVASCULAR: No radiographic findings to suggest acute or significant cardiovascular disease. OSSEOUS STRUCTURES: No significant abnormalities. VISUALIZED UPPER ABDOMEN: Normal. OTHER FINDINGS: None. IMPRESSION: No active disease. No significant interval change compared to the prior examination(s).
[2017-11-01 19:08] LABS: INR 1.1 (0.9-1.2); PARTIAL THROMBOPLASTIN TIME 31.1 Seconds (25.6-37.1); PROTHROMBIN TIME 11.8 Seconds (9.8-13.1)
[2017-11-01 20:38] VITALS: BP 130/83; PULSE 64; RESP 16; TEMP 98
--- NOTE | 2017-11-02 09:16 | CARD ---
APPROVED REPORT Date of service: 11/01/2017 EKG Measurement Heart [id number] <Conclusion> Normal sinus rhythm Normal ECG
--- NOTE | 2017-11-02 10:08 | CT ---
Date of service: 11/01/2017 PROCEDURE: CT HEAD WITHOUT CONTRAST. HISTORY: L sided numbness/weakness X 2 months COMPARISON: None available. TECHNIQUE: Axial computed tomography images were obtained through the head/brain without intravenous contrast. Radiation dose: Total exam DLP = 780.69 mGy-cm. This CT exam was performed using one or more of the following dose reduction techniques: Automated exposure control, adjustment of the mA and/or kV according to patient size, and/or use of iterative reconstruction technique. FINDINGS: HEMORRHAGE: No intracranial hemorrhage. BRAIN: Avila-white matter differentiation is preserved. There is no mass, mass effect or abnormal extra-axial fluid collection. There is no territorial infarction. The midline sagittal structures are normal. VENTRICLES: The ventricles are normal in size, shape and configuration. CALVARIUM: There is no calvarial fracture or extracranial soft tissue swelling. PARANASAL SINUSES: Predominantly clear. MASTOID AIR CELLS: Predominantly clear. OTHER FINDINGS: None. IMPRESSION: No acute intracranial abnormality. If there is a persistent focal neurologic deficit and an ongoing clinical concern for acute infarction, an MRI of the brain without intravenous contrast would be a more sensitive modality for evaluation of hyperacute/acute ischemic infarction. . A preliminary report was provided by [employer].
[2017-11-04 07:53] VITALS: O2SAT 136
== END 2017-11-01 20:38 | disposition left against medical advice (07) ==
LOC: H.ER 17:33
DX: R07.9 Chest pain, unspecified (principal); R20.0 Anesthesia of skin
CPT/HCPCS: 70450; 71045; 80053; 80061; 82948; 83036; 84484; 85025; 85610; 85730; 86850; 86900; 93005; 99284; J7030

== ENCOUNTER 2018-04-28 22:13 | Emergency (ER) | payer OTHER ==
[2018-04-28] MEDS ORDERED: Sodium Chloride 0.9% 1,000 ML IV STA (23:01)
--- NOTE | 2018-04-28 23:01 | ED PDOC ---
HPI:STROKE - Time Time: 22:35 - Historian Historian: Patient, Family - Chief Complaint Chief Complaint: Weakness, Numbness - Onset Onset: Years (1+) - Severity of pain Maximum severity:: Mild Severity Current: Mild - Exacerbated by Exacerbated by:: Nothing - Relieved by Relieved by:: Nothing - TPA Positive for Contraindication: Yes Reason tPA is not being Administered: symptoms ongoing intermittently for about one year per patient - Notes: Notes:: 47yo male c/o left sided numbness and weakness intermittent but persistent for about a year, today had dizziness and mild headache prompting ED visit. Dizziness worse w head movement. Denies change vision, change speech, syncope, or chest pain/SOB. Has seen both neurology and cardiology in [facility] with MRI brain, stress test and basic workup for metabolic or Lyme etiologies. Told he needed EMG but hasnt performed yet. NIHSS Stroke Scale - Date/Time Evaluation Performed Date Performed: 04/28/18 Time Performed: 22:40 When Was NIHSS Performed: Re-evaluation - How Severe is the Stroke Level of Consciousness: 0=Alert LOC to Questions: 0=Both comments correct LOC to commands: 0=Obeys both correctly Best Gaze: 0=Normal Visual: 0=No visual loss Facial: 0=Normal Motor Arm - Left: 0=No drift Motor Arm - Right: 0=No drift Motor Leg - Left: 0=No drift Motor Leg - Right: 0=No drift Limb Ataxia: 0=Absent Sensory: 0=Normal Best Language: 0=No aphasia Dysarthia: 0=Normal articulation Extinction & Inattention (Neglect): 0=Normal, no object Score: 0 rTPA Inclusion/Exclusion - Refusal of Treatment Patient Refused Treatment: No - Inclusion Criteria for Altepase Patient is 18 years or Older: Yes The Clinical Diagnosis of Ischemic Stroke That is Causing a Potentially Disabling Neurological Deficit: No Time of Onset is Well Established to be Less Than 270 Minute Before Treatment Would Begin: No Risk/Benefit Discussed With Patient/Family Member Present: No - Warning to TPA With Conditions Condition: Stroke Serevity Too Mild (ongoing 1 year) Past Medical History Vital Signs: Last Vital Signs Temp 97.2 F L 04/28/18 22:21 Pulse 82 04/28/18 22:21 Resp 18 04/28/18 22:21 BP 145/88 04/28/18 22:21 Pulse Ox 99 04/28/18 22:21 - Medical History PMH: Denies: Chronic Kidney Disease - Family History Family History: States: Unknown Family Hx - Home Medications Home Medications: Ambulatory Orders Medication Instructions Recorded Bimatoprost [Lumigan] 1 drop BOTHEYES DAILY 08/07/17 Mv-Min/Vit C/Glut/Lysine/Hc124 1 each PO DAILY 08/07/17 [Airborne Tablet Chewable] Amoxicillin/Clavulanate [Augmentin 1 tab PO BID #20 tab 08/08/17 875 MG-125 MG] Aspirin [Aspirin Chewable] 81 mg PO DAILY #30 chew 08/08/17 Meclizine [Meclizine*] 25 mg PO Q8 PRN #12 tab 04/29/18 - Allergies Allergies/Adverse Reactions: Allergies Allergy/AdvReac Type Severity Reaction Status Date / Time No Known Allergies Allergy Verified 08/07/17 12:58 Physical Exam - Reviewed Nursing Documentation Reviewed: Yes Vital Signs Reviewed: Yes - Physical Exam Appears: Positive for: Well, Non-toxic, No Acute Distress Head Exam: Positive for: ATRAUMATIC, NORMAL INSPECTION, NORMOCEPHALIC Skin: Positive for: Normal Color, Warm, DRY Eye Exam: Positive for: EOMI, Normal appearance, PERRL ENT: Positive for: Normal ENT Inspection Neck: Positive for: Normal, Painless ROM Cardiovascular/Chest: Positive for: Regular Rate, Rhythm Respiratory: Positive for: CNT, Normal Breath Sounds Gastrointestinal/Abdominal: Positive for: Normal Exam, Soft Back: Positive for: Normal Inspection Extremity: Positive for: Normal ROM Neurologic/Psych: Positive for: Alert, bus attendant II-XII, Oriented, Mood/Affect (anxious), Cerebellar Tests (intact coordination grossly), Gait (normal). Negative for: Motor/Sensory Deficits, Facial Droop - Laboratory Results Result Diagrams: 04/28/18 23:25 04/28/18 23:25 - ECG O2 Sat by Pulse Oximetry: 99 Pulse Ox Interpretation: Normal Medical Decision Making Medical Decision Making: workup for chronic L sided weakness/numbness w new dizziness initiated Pt reports he took 2 ASA 81mg prior to arrival. CT brain, labs and EKG ordered labs unremarkable CXR my read normal heart size May need more advanced lyme/metabolic workup or imaging via neurology. CT Head without Intravenous Contrast. CLINICAL HISTORY: Left sided weakness one year worse recently TECHNIQUE: Axial computed tomography images of the head/brain without intravenous contrast. 800.63 mGy-cm COMPARISON: CT - HEAD W/O CONTRAST - 11/01/2017 07:09 PM EDT FINDINGS: BRAIN No acute intraparenchymal hemorrhage. No mass lesion. No CT evidence for acute territorial infarct. No midline shift or extra-axial collections. VENTRICLES: No hydrocephalus. ORBITS: The orbits are unremarkable. SINUSES AND MASTOIDS: The paranasal sinuses and mastoid air cells are clear. BONES: No fracture. SOFT TISSUES: Unremarkable. IMPRESSION: No acute intracranial abnormality. Electronically signed on Apr 28, 2018 11:48:10 PM EST by: Zach Metcalf M.D., CHRISTOPHER Certified By [employer] & [facility] Fellowship Trained MRI and CT Specialist ESR 0 Repeat EKG sinus at 62bpm no interval abnormality Trial meclizine provided Recommend outpatient workup for autoimmune, lyme, neurologic disorders. Offered hospitalization for MRI and neuro eval in morning but he declined and risks were explained. Disposition - Clinical Impression Clinical Impression: Dizziness, Left sided numbness - Patient ED Disposition Is Patient to be Admitted: No Counseled Patient/Family Regarding: Studies Performed, Diagnosis, Need For Followup, Rx Given - Disposition Referrals: Herbert Mandujano MD [Medical Doctor] - Disposition: Routine/Home Disposition Time: 00:24 Condition: STABLE Additional Instructions: See neurologist and PMD for further testing. Trial of meclizine for dizziness recommended. You may need testing for other etiologies like Lyme disease, autoimmune disease or other neurologic disorders. Return to ER for any worse or new symptoms. Prescriptions: Meclizine [Meclizine*] 25 mg PO Q8 PRN #12 tab PRN Reason: Dizziness Instructions: Dizziness, Nonvertigo, (DC), Hand Numbness, Generalized Weakness Forms: [email or web address] (Faroese)
[2018-04-28 23:32] LABS: BASO % 0.7 % (0.0-2.0); EOS # 0.1 K/uL (0.0-0.7); EOS % 1.2 % (0.0-4.0); HEMOGLOBIN 14.7 g/dL (12.0-18.0); MEAN CORPUSCULAR HEMOGLOBIN 28.1 pg (27.0-31.0); MEAN CORPUSCULAR HGB CONC 33.8 g/dL (33.0-37.0); MEAN PLATELET VOLUME 6.4 fl (7.2-11.7); MONO # 0.4 K/uL (0.0-0.8); NEUT # 3.3 K/uL (1.8-7.0); NEUT % 56.1 % (50.0-75.0); NRBC % 0.1 % (0.0-0.0); RBC 5.23 Mil/uL (4.40-5.90); RED CELL DISTRIBUTION WIDTH 14.4 % (11.5-14.5); WHITE BLOOD COUNT 5.8 K/uL (4.8-10.8)
[2018-04-28 23:39] LABS: ALB/GLOB RATIO 1.4 (1.0-2.1); ALBUMIN 4.4 g/dL (3.5-5.0); ALT/SGPT 52 U/L (21-72); AST/SGOT 37 U/L (17-59); BLOOD UREA NITROGEN 12 mg/dl (9-20); CALCIUM 9.5 mg/dL (8.4-10.2); GFR NON-AFRICAN AMERICAN > 60
[2018-04-29 00:43] VITALS: BP 111/67; PULSE 59; RESP 16; TEMP 97.9; O2SAT 100
--- NOTE | 2018-04-29 07:14 | CARD ---
APPROVED REPORT Date of service: 04/29/2018 EKG Measurement Heart [id number] ME 134P-3 [id number] <Conclusion> Normal sinus rhythm Normal ECG
--- NOTE | 2018-04-29 07:16 | CARD ---
APPROVED REPORT Date of service: 04/28/2018 EKG Measurement Heart [id number] CT 136P-64 [id number] <Conclusion> Possible ectopic atrial rhythm Abnormal ECG
--- NOTE | 2018-04-29 09:07 | CT ---
Date of service: 04/28/2018 PROCEDURE: CT HEAD WITHOUT CONTRAST. HISTORY: Left-sided weakness for one year, worse recently COMPARISON: Comparison made with prior study dated 11/01/2017. TECHNIQUE: Axial computed tomography images were obtained through the head/brain without intravenous contrast. Radiation dose: Total exam DLP = 800.63 mGy-cm. This CT exam was performed using one or more of the following dose reduction techniques: Automated exposure control, adjustment of the mA and/or kV according to patient size, and/or use of iterative reconstruction technique. FINDINGS: HEMORRHAGE: No intracranial hemorrhage. BRAIN: No mass effect or edema. No atrophy or chronic microvascular ischemic changes. Very mild generalized volume loss VENTRICLES: Unremarkable. No hydrocephalus. CALVARIUM: Unremarkable. PARANASAL SINUSES: Unremarkable as visualized. No significant inflammatory changes. MASTOID AIR CELLS: Unremarkable as visualized. No inflammatory changes. OTHER FINDINGS: None. IMPRESSION: No acute intracranial hemorrhage. Mild generalized volume loss.
--- NOTE | 2018-04-29 10:58 | RAD ---
Date of service: 04/28/2018 HISTORY: SOB COMPARISON: Chest radiograph 11/01/2017. FINDINGS: LUNGS: No active pulmonary disease. PLEURA: No significant pleural effusion identified, no pneumothorax apparent. CARDIOVASCULAR: No aortic atherosclerotic calcification present. Normal cardiac size. No pulmonary vascular congestion. OSSEOUS STRUCTURES: No significant abnormalities. VISUALIZED UPPER ABDOMEN: Normal. OTHER FINDINGS: None. IMPRESSION: No active disease.
== END 2018-04-29 00:41 | disposition home or self-care (01) ==
LOC: H.ER 22:13
DX: R42 Dizziness and giddiness (principal); R20.2 Paresthesia of skin; Z79.82 Long term (current) use of aspirin
CPT/HCPCS: 70450; 71045; 80053; 84484; 85025; 85651; 93005; 99284; J7030

== ENCOUNTER 2018-05-19 16:57 | Emergency (ER) | payer OTHER ==
--- NOTE | 2018-05-19 17:49 | ED PDOC ---
HPI: Chest Pain Time Seen by Provider: 05/19/18 17:20 Chief Complaint (Nursing): Chest Pain Chief Complaint (Provider): Left sided chest pain History Per: Patient History/Exam Limitations: no limitations Onset/Duration Of Symptoms: Other (x1 year) Additional Complaint(s): 47 year old male presents to the ED with intermittent left sided numbness and weakness for the last year. Patient has been seen 3 times here for this issue and was seen by a neurologist once in the summer of last year. Today, he had seen an ENT for evaluation of the inner ear but symptoms started again associated with more severe left sided chest pain. Patient reports he has had this in the past but would resolve quickly. He feels it is worse than usual. Past workup included MRI, CT scan of the head multiple times as well as CTA head and neck all of which were normal. Patient had been told to under go EMG te sting by neurologist but was unable to complete it due to severe discomfort. He also reports feeling weak in the morning daily which sometimes gets better during the course of the day. Today, however, pain has not improved. PMD: Dr. Mcwilliams, J Past Medical History Reviewed: Historical Data, Nursing Documentation, Vital Signs Vital Signs: Last Vital Signs Temp 97.7 F 05/19/18 17:08 Pulse 65 05/19/18 17:08 Resp 16 05/19/18 17:08 BP 132/79 05/19/18 17:08 Pulse Ox 99 05/19/18 17:08 - Medical History PMH: No Chronic Diseases Denies: Chronic Kidney Disease - Surgical History Surgical History: No Surg Hx - Family History Family History: States: Unknown Family Hx - Home Medications Home Medications: Ambulatory Orders Medication Instructions Recorded RX: Bimatoprost [Lumigan] 1 drop BOTHEYES DAILY 08/07/17 RX: Mv-Min/Vit C/Glut/Lysine/Hc124 1 each PO DAILY 08/07/17 [Airborne Tablet Chewable] Amoxicillin/Clavulanate [Augmentin 1 tab PO BID #20 tab 08/08/17 875 MG-125 MG] RX: Aspirin [Aspirin Chewable] 81 mg PO DAILY #30 chew 08/08/17 RX: Meclizine [Meclizine*] 25 mg PO Q8 PRN #12 tab 04/29/18 - Allergies Allergies/Adverse Reactions: Allergies Allergy/AdvReac Type Severity Reaction Status Date / Time No Known Allergies Allergy Verified 08/07/17 12:58 Review of Systems ROS Statement: Except As Marked, All Systems Reviewed And Found Negative (as per HPI otherwise negative) Cardiovascular: Positive for: Chest Pain Neurological: Positive for: Weakness, Numbness Physical Exam - Reviewed Nursing Documentation Reviewed: Yes Vital Signs Reviewed: Yes - Physical Exam Appears: Positive for: No Acute Distress (but tired appearing) Head Exam: Positive for: ATRAUMATIC Skin: Positive for: Warm, Dry Eye Exam: Positive for: EOMI, PERRL ENT: Positive for: Other (Tacky mucous membranes) Neck: Positive for: Painless ROM, Supple Cardiovascular/Chest: Positive for: Regular Rate, Rhythm, Other (Normal S1 and S2). Negative for: Murmur Respiratory: Positive for: Normal Breath Sounds (Clear to auscultation). Negative for: Wheezing Gastrointestinal/Abdominal: Positive for: Soft. Negative for: Tenderness Back: Positive for: Normal Inspection. Negative for: Decreased ROM Extremity: Positive for: Normal ROM. Negative for: Deformity Lymphatic: Negative for: Adenopathy Neurologic/Psych: Positive for: Alert, Oriented (x3), Mood/Affect (anxious). Negative for: Motor/Sensory Deficits - Laboratory Results Result Diagrams: 05/19/18 17:49 05/19/18 17:49 - ECG ECG Rhythm: Positive for: Normal QRS, Normal ST Segment, Sinus Rhythm Rate: 69 O2 Sat by Pulse Oximetry: 99 (RA) Pulse Ox Interpretation: Normal Medical Decision Making Medical Decision Making: Initial Impression: Chronic intermittent left sided parasthesia with chest pain. Differential includes but not limited to electrolyte abnormality, anxiety, thyroid disorder; unlikely ACS according to cardiac risk profile. Initial Plan: --Type and Screen stat --CMP --Drug screen --T4 stat --Lipid panel --Magnesium stat --Phosphorous stat --T3 stat --TSH --Troponin stat --ED urine dipstick --CBC --D Dimer Reviewed patient's previous charts. Patient had been admitted to this hospital the first time he presented with this and underwent extensive workup that was negative. Labs today unremarkable. DW pt and findings. Reviewed pt's previous workup and encouraged to followup with neurology as soon as possible. Concerns/questions addressed/answered. - Scribe Attestation: Documented by Jimmy Rosenthal acting as a scribe for Shital Galloway MD. Provider Scribe Attestation: All medical record entries made by the Scribe were at my direction and personall y dictated by me. I have reviewed the chart and agree that the record accurately reflects my personal performance of the history, physical exam, medical decision making, and the department course for this patient. I have also personally directed, reviewed, and agree with the discharge instructions and disposition. Disposition - Clinical Impression Clinical Impression: Cervical spondylosis, Weakness, Chest pain - Disposition Disposition: Routine/Home Disposition Time: 20:00 Condition: STABLE Additional Instructions: PLEASE REST AND DRINK PLENTY OF HYDRATING FLUIDS AND FOLLOWUP WITH YOUR NEUROLOGIST AND PRIMARY CARE PHYSICIAN SOON POSSIBLE FOR FURTHER MANAGEMENT Instructions: Chest Pain That Is Not Caused by the Heart (DC), Spondylolysis (DC), Weakness (ED) Forms: [facility] ED School/Work Excuse
[2018-05-19 18:19] LABS: BASO % 0.5 % (0.0-2.0); EOS % 0.3 % (0.0-4.0); HEMOGLOBIN 14.4 g/dL (12.0-18.0); LYMPH # 1.5 K/uL (1.0-4.3); LYMPH % 22.2 % (20.0-40.0); MEAN CELL VOLUME 83.1 fl (80.0-94.0); MEAN CORPUSCULAR HEMOGLOBIN 27.9 pg (27.0-31.0); MEAN CORPUSCULAR HGB CONC 33.6 g/dL (33.0-37.0); MEAN PLATELET VOLUME 6.5 fl (7.2-11.7); MONO # 0.3 K/uL (0.0-0.8); MONO % 4.7 % (0.0-10.0); NEUT % 72.3 % (50.0-75.0); NRBC % 0.1 % (0.0-0.0); RBC 5.15 Mil/uL (4.40-5.90); RED CELL DISTRIBUTION WIDTH 14.4 % (11.5-14.5); WHITE BLOOD COUNT 6.9 K/uL (4.8-10.8)
[2018-05-19 18:32] LABS: ALB/GLOB RATIO 1.5 (1.0-2.1); ALBUMIN 4.4 g/dL (3.5-5.0); ALT/SGPT 43 U/L (21-72); AST/SGOT 29 U/L (17-59); BLOOD UREA NITROGEN 10 mg/dl (9-20); CALCIUM 9.3 mg/dL (8.4-10.2); GFR NON-AFRICAN AMERICAN > 60
[2018-05-19 18:59] LABS: T3 0.864 nmol/L (1.49-2.60)
[2018-05-19 20:20] LABS: BARBITURATES, UR NEGATIVE (NEGATIVE); BENZODIAZEPINES, UR NEGATIVE (NEGATIVE); OPIATES, UR NEGATIVE (NEGATIVE); PHENCYCLIDINE, UR NEGATIVE (NEGATIVE)
[2018-05-19 20:22] VITALS: BP 124/66; RESP 18; TEMP 98.7
--- NOTE | 2018-05-20 10:17 | CARD ---
APPROVED REPORT Date of service: 05/19/2018 EKG Measurement Heart [id number] NH 124P [id number] <Conclusion> Normal sinus rhythm Normal ECG
[2018-05-22 09:19] VITALS: PULSE 69; O2SAT 99
== END 2018-05-19 20:22 | disposition home or self-care (01) ==
LOC: H.ER 16:57
DX: R07.89 Other chest pain (principal); M62.81 Muscle weakness (generalized); M47.812 Spondylosis without myelopathy or radiculopathy, cervical region; F41.9 Anxiety disorder, unspecified; Z79.82 Long term (current) use of aspirin